=== PATIENT | female | born 2005 | race Caucasian/White ===

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

== ENCOUNTER → 2025-01-10 10:37 | Outpatient (BNVA) | payer OTHER, SELFPAY | PROVIDERS: PCP Clinical Nurse Specialist Adult Health; Visit Provider Clinical Nurse Specialist Adult Health | DX: Z30.09 Encounter for other general counseling and advice on contraception (principal) | CPT/HCPCS: 81025 ==

== ENCOUNTER → 2025-02-10 10:40 | Outpatient (BNVA) | payer OTHER, SELFPAY | PROVIDERS: PCP Clinical Nurse Specialist Adult Health; Visit Provider Clinical Nurse Specialist Adult Health | DX: E16.2 Hypoglycemia, unspecified (principal) | CPT/HCPCS: 80048; 82728; 83525; 83540; 84439; 84443; 85025 ==

== ENCOUNTER → 2025-03-10 09:38 | Outpatient (BNVA) | payer OTHER, SELFPAY | PROVIDERS: PCP Clinical Nurse Specialist Adult Health; Visit Provider Clinical Nurse Specialist Adult Health | DX: N93.9 Abnormal uterine and vaginal bleeding, unspecified (principal) | CPT/HCPCS: 81025 ==

== ENCOUNTER → 2025-04-14 14:06 | Outpatient (BNVA) | payer OTHER, SELFPAY | PROVIDERS: PCP Clinical Nurse Specialist Adult Health; Visit Provider Clinical Nurse Specialist Adult Health | DX: K29.70 Gastritis, unspecified, without bleeding (principal); R10.13 Epigastric pain | CPT/HCPCS: 87338 ==

== ENCOUNTER 2025-05-12 08:19 | Day surgery (SDC) | payer OTHER, SELFPAY ==
[2025-05-12 08:39] VITALS: BP 146/89; PULSE 98; RESP 16; TEMP 36.1; O2SAT 99
[2025-05-12 08:41] LABS: OR HCG Qualitative Urine Negative (Negative)
--- NOTE | 2025-05-12 09:31 | ANES.PREANE2 ---
Pre-Anesthetic Assessment Height/Weight: Height 1.65 m Weight 47.627 kg Temp Pulse Resp BP Pulse Ox O2 Del Method 97.0 F L 98 16 146/89 99 Room Air 05/12/25 08:39 05/12/25 08:39 05/12/25 08:39 05/12/25 08:39 05/12/25 08:39 05/12/25 08:39 Preop Diagnosis: epigastric pain Operation Date: 05/12/25 09:30 Proposed Procedures p EGD EGD with Biopsy 07051 R10.13 R12(Not Applicable) - Gamal Us MD Familial anesthetic complications: none Was Beta Nathalie taken within 24 hours: N/A Was Clonidine taken within 24 hours: N/A Last intake: Intake Last Liquid Date 05/11/25 Last Liquid Time 23:30 Last Solid Date 05/11/25 Last Solid Time 22:00 Social No alcohol and No tobacco Exam alert and oriented x 3 Airway Submandibular: within normal limits Cervical ROM: within normal limits Mallampati: Class I Dentition: full History/ROS No significant history except as noted GI Gastroesophageal Reflux Disease Anesthetic Plan ASA status: 2 Anesthesia: Anesthesia Evaluation and MAC Medications/Allergies Home Medications ?Medication ?Instructions ?Recorded ?Confirmed ?Last Taken ?Type folic acid 1 mg tablet 1 mg PO DAILY #30 tabs 01/10/25 05/09/25 05/11/25 Rx cetirizine 10 mg tablet (All Day 10 mg PO DAILY #30 tabs 04/08/25 05/09/25 05/11/25 Rx Allergy (cetirizine)) famotidine 20 mg tablet (Acid 20 mg PO BID #60 tabs 04/08/25 05/09/25 05/11/25 Rx Oil Deliverer (famotidine)) levonorgestrel 0.15 mg-ethinyl 1 tab PO DAILY #84 tabs 04/08/25 05/09/25 05/11/25 Rx estradiol 0.03 mg tablet (Bebo (28)) pantoprazole 40 mg tablet,delayed 40 mg PO BID 05/09/25 05/09/25 05/11/25 History release (Protonix) Allergies Allergy/AdvReac Type Severity Reaction Status Date / Time Penicillins Allergy Severe ALGY-Hives Verified 05/09/25 09:59 amoxicillin Allergy Intermediate rash, N&V Verified 05/09/25 09:59 Current Medications Generic Name Dose Route Start Last Admin Trade Name Freq PRN Reason Stop Dose Admin Sodium Chloride 1,000 mls @ 15 mls/hr 05/12/25 08:22 05/12/25 08:50 Sodium Chloride 0.9% IV 05/13/25 08:21 15 mls/hr .Q24H PRN Administration COLONOSCOPY FLUIDS PFSH Anesthesia Medical History (Updated 04/18/25 @ 09:27 by Gamal Us MD) Eustachian tube dysfunction History of miscarriage Vitamin D deficiency Encounter for other general counseling or advice on contraception Surgical History No pertinent past surgical history Family History Other Alcohol dependence Drug abuse Denies family history of Diabetes Clotting disorder Anesthesia complication Bleeding disorder Hypertension Social History Smoking and tobacco/nicotine status: former use of tobacco/nicotine (vape) Alcohol intake: never Substance/Drug Use: never Adopted: No Lives independently: Yes Household members: significant other Highest education level completed: High School Graduate Current occupational status: employed Current occupation: [employer] Female Reproductive History Date of last menstrual period: 05/09/25 Para: 0 Spontaneous abortions: Yes
--- NOTE | 2025-05-12 09:46 | W.PM.OPSUD ---
Surgery/Procedure H&P Update DATE OF PROCEDURE: May 12, 2025 DATE H&P PERFORMED: 04/18/25 H&P UPDATE INFORMATION: I have reviewed H&P completed within last 30 days, I have examined patient prior to procedure and No changes to prior documentation PREOP DIAGNOSIS: epigastric pain PLANNED PROCEDURE: Operation Date: 05/12/25 09:30 Proposed Procedures p EGD EGD with Biopsy 95405 R10.13 R12(Not Applicable) - Gamal Us MD
[2025-05-12 09:56] VITALS: BP 100/59; PULSE 98; RESP 18; TEMP 36.6; O2SAT 98
[2025-05-12 10:30] VITALS: BP 126/87; PULSE 83; RESP 16; O2SAT 99
--- NOTE | 2025-05-12 10:30 | ANE.PACU2 ---
Inpatient post-anesthesia follow up: Airway intact: Yes Vital signs: Temperature 98 F Pulse Rate 83 Respiratory Rate 16 Blood Pressure 126/87 Pulse Oximetry 99 Oxygen Delivery Me thod Room Air Oxygen Flow Rate Fraction of Inspir ed Oxygen Hydration adequate: Yes Nausea and vomiting: No Pain level: 1 Mental status: Baseline
== END 2025-05-12 10:30 | disposition home or self-care (01) ==
PROVIDERS: Student in an Organized Health Care Education/Training Program; PCP Clinical Nurse Specialist Adult Health; Visit Provider Student in an Organized Health Care Education/Training Program
PROC: 0DJ08ZZ Inspection of Upper Intestinal Tract, Via Natural or Artificial Opening Endoscopic (ICD-10-PCS; principal; 2025-05-12 09:30)
DX: R12 Heartburn (principal); K29.50 Unspecified chronic gastritis without bleeding; K21.9 Gastro-esophageal reflux disease without esophagitis; Z87.891 Personal history of nicotine dependence
CPT/HCPCS: 43239; 81025; 88305; 88342; J2704; J7030

== ENCOUNTER 2025-06-01 10:17 | Outpatient (CLI) | payer OTHER, SELFPAY ==
--- NOTE | 2025-06-01 10:15 | US_ITS ---
WS: [id number] RIGHT UPPER QUADRANT ULTRASOUND HISTORY: abd pain COMPARISON: None available. Liver: 14.2 cm in length. Normal size liver and echogenicity. No bile duct dilatation or mass. Portal Vein: Normal hepatopetal flow with monophasic waveform. Gallbladder: Normally distended gallbladder. A tiny gallbladder polyp or small amount of adherent sludge present. No stones. CBD: 0.2 cm Pancreas: Normal size and echogenicity. Right kidney: 10.0 cm in length. Normal size and echogenicity. No hydronephrosis or mass. Aorta and IVC: Unremarkable abdominal aorta and IVC. No ascites. US/US gall bladder [id number] IMPRESSION: 1. No cholelithiasis. 2. Very tiny gallbladder polyp versus adherent sludge in the gallbladder. Othe rwise negative. 3. Normal liver.
== END 2025-06-01 10:18 | disposition home or self-care (01) ==
PROVIDERS: PCP Clinical Nurse Specialist Adult Health; Visit Provider Student in an Organized Health Care Education/Training Program
DX: R10.9 Unspecified abdominal pain (principal); K82.8 Other specified diseases of gallbladder
CPT/HCPCS: 76705

== ENCOUNTER 2025-06-20 10:31 | Outpatient (CLI) | payer OTHER, SELFPAY | END 2025-06-20 10:32 | disposition home or self-care (01) | LOC: RAD 06-24 08:53 | PROVIDERS: PCP Clinical Nurse Specialist Adult Health; Visit Provider Clinical Nurse Specialist Adult Health | DX: J06.9 Acute upper respiratory infection, unspecified (principal) | CPT/HCPCS: 87880 ==

== ENCOUNTER 2025-07-04 10:04 | Outpatient (CLI) | payer OTHER, SELFPAY ==
--- NOTE | 2025-07-04 10:00 | NM_ITS ---
WS: [id number] NUCLEAR MEDICINE HIDA SCAN CLINICAL INFORMATION: R10.11 - Right upper quadrant pain TECHNIQUE: Following intravenous administration of 7.3 mCi of technetium 99m mebrofenin, images of the abdomen were obtained over the course of 60 minutes. Next, gallbladder ejection fraction was determined by obtaining preprandial and one-hour postprandial images of the gallbladder following oral ingestion of Ensure. FINDINGS: Normal hepatic uptake at 5 minutes. Normal hepatic excretion. Gallbladder is visualized by 10 minutes. No evidence of acute cholecystitis. Normal common bile duct and small bowel activity. Gallbladder ejection fraction 46% within normal limits at the lower end of the range. No other acute findings. NM/NM hepatobiliary w phar* [id number] IMPRESSION: 1. No evidence of acute cholecystitis. 2. Normal common bile duct and small bowel activity. 3. Gallbladder ejection fraction 46% within normal limits at the lower end of the range.
== END 2025-07-04 10:05 | disposition home or self-care (01) ==
PROVIDERS: PCP Clinical Nurse Specialist Adult Health; Visit Provider Clinical Nurse Specialist Adult Health
DX: R10.11 Right upper quadrant pain (principal)
CPT/HCPCS: 78227; A9537

== ENCOUNTER 2025-08-17 05:43 | Day surgery (SDC) | payer OTHER, SELFPAY ==
[2025-08-17] VITALS (9 sets, daily range): BP systolic 92–132; BP diastolic 46–80; PULSE 87–106; RESP 17–24; TEMP 36.1–36.7; O2SAT 98–100; BMI 20.1
[2025-08-17 05:56] LABS: OR HCG Qualitative Urine Negative (Negative)
--- NOTE | 2025-08-17 06:14 | ANES.PREANE2 ---
Pre-Anesthetic Assessment Height/Weight: Height 5 ft 2 in Preop Diagnosis: Gallbladder pain Operation Date: 08/17/25 07:00 Proposed Procedures p Laparoscopic Cholecystectomy Lap [place] 32946 R10.11(Not Applicable) - Gamal Us MD Was Beta Nathalie taken within 24 hours: N/A Was Clonidine taken within 24 hours: N/A Social No alcohol and No tobacco Exam alert, oriented x 3, clear to auscultation bilaterally and regular rate & rhythm Airway Submandibular: within normal limits Cervical ROM: within normal limits Mallampati: Class I Dentition: full Anesthetic Plan ASA status: 2 Anesthesia: General Other: No prior issues with anesthesia NPO since yesterday afternoon Denies any cardiac or pulmonary issues Patient takes Protonix for chronic gastritis METs greater than 4 hCG negative Plan for GETA Medications/Allergies Home Medications ?Medication ?Instructions ?Recorded ?Confirmed ?Last Taken ?Type folic acid 1 mg tablet 1 mg PO DAILY #30 tabs 01/10/25 08/16/25 08/16/25 Rx levonorgestrel 0.15 mg-ethinyl 1 tab PO DAILY #84 tabs 07/22/25 08/16/25 08/16/25 Rx estradiol 0.03 mg tablet ([place]urvelo (28)) pantoprazole 40 mg tablet,delayed 40 mg PO BID #60 tabs 07/22/25 08/16/25 08/16/25 Rx release (Protonix) cetirizine 10 mg tablet (All Day 10 mg PO DAILY #30 tabs 08/16/25 Unknown Rx Allergy (cetirizine)) Allergies Allergy/AdvReac Type Severity Reaction Status Date / Time Penicillins Allergy Severe ALGY-Hives Verified 08/04/25 10:05 amoxicillin Allergy Intermediate rash, N&V Verified 08/04/25 10:05 [facility] Anesthesia Medical History Eustachian tube dysfunction History of miscarriage Vitamin D deficiency Encounter for other general counseling or advice on contraception Surgical History No pertinent past surgical history Family History Other Alcohol dependence Drug abuse Gallbladder calculus Denies family history of Diabetes Clotting disorder Anesthesia complication Bleeding disorder Hypertension Social History Smoking and tobacco/nicotine status: never used tobacco/nicotine Alcohol intake: never Substance/Drug Use: never Adopted: No Lives independently: Yes Household members: significant other Highest education level completed: High School Graduate Current occupational status: employed Current occupation: [employer] Female Reproductive History Date of last menstrual period: 07/29/25 Para: 0 Spontaneous abortions: Yes
--- NOTE | 2025-08-17 07:04 | W.PM.OPSUD ---
Surgery/Procedure H&P Update DATE OF PROCEDURE: August 17, 2025 DATE H&P PERFORMED: 08/04/25 H&P UPDATE INFORMATION: I have reviewed H&P completed within last 30 days, I have examined patient prior to procedure, No changes to prior documentation and Risks and benefits of the procedure reviewed CHANGES TO PREVIOUS DOCUMENTATION: Proceed with laparoscopic cholecystectomy possible open PREOP DIAGNOSIS: Gallbladder pain PLANNED PROCEDURE: Operation Date: 08/17/25 07:00 Proposed Procedures p Laparoscopic Cholecystectomy Lap [place] 15236 R10.11(Not Applicable) - Gamal Us MD
[2025-08-17] MEDS: lidocaine-epi 1% 20 mL INJ 10 ML INJECTION (07:53)
--- NOTE | 2025-08-17 07:54 | P.OP_ITS ---
Operative Report Date of procedure: August 17, 2025 Pre-op diagnosis: Gallbladder sludge Post-op diagnosis: same Post-op findings: Unremarkable gallbladder. Procedure done: Laparoscopic cholecystectomy Implants: N/A Specimens removed/disposition: Gallbladder sent to pathology Pathology: Gallbladder sent to pathology Surgeon: Gamal Us MD Respiratory Therapy Manager: N/A Anesthesia: General Estimated blood loss (mL): 10 Complications: N/A Findings: Unremarkable gallbladder. Condition: stable Disposition: same day Brief History: 19-year-old female complaining of right upper quadrant pain whose ultrasound showed sludge. Discussed risk and benefits and patient agreed to proceed with laparoscopic cholecystectomy possible open. Procedure: I discussed the risks and benefits of laparoscopic cholecystectomy, possible open, and obtained consent prior to proceeding to the operating room. SCDs were utilized. Prophylactic antibiotics were administered. General anesthesia was induced. The patient was placed supine, and was prepped and draped in the usual sterile fashion. Insufflation to 15mmHg was achieved using a Veress needle at Walter's point. A 5mm optiview trocar was placed at the umbilicus under direct visualization. The left upper quadrant was inspected, and no injuries were noted. Two 5mm ports were placed in the right upper quadrant, and a 12mm working port was placed in the epigastrium. The gallbladder was then retracted cephalad through the lateral RUQ port, and the infundibulum grabbed through the medial RUQ port and retracted laterally. The gallbladder was not inflammed consistent with the diagnosis of gallbladder sludge. I proceeded to score the peritoneum over the medial aspect of the gallbladder using a laparoscopic hook with electrocautery. Then the infundibulum was retracted medially in order to score the peritoneum over the lateral aspect of the galbladder. Using a combination of energy and blunt dissection with the [place] and a Kittner dissector, the cystic artery and cystic duct were dissected. I then proceeded to dissect the cystic plate in order to to achieve the critical view of safety (CVS - hepatocystic triangle was cleared of fat and fibrous tissue, the lower one-third of the gallbladder was from the liver to expose the cystic plate, two and only two structures were seen entering the gallbladder, the cystic duct and the cystic artery). The cystic artery and the cystic duct were clipped three times (leaving two clips on the proximal end of both structures). I then proceeded to dissect the gallbladder off the liver using hook electrocautery. The specimen was placed in an endocatch bag and retrieved from the abdomen through the port on the epigastrium. I then irrigated the gallbladder fossa with 1L of NS to confirm adequate hemostasis and the absence of any bile leaks. The gallbladder fossa was then cauterized again. Prior to ending the laparoscopic portion, I examined the rest of the abdomen and did not find any abnormalities or injuries. The abdomen was then desufflated, and the 12mm port at the umbilicus was closed using 0 vicryl on a UR needle after irrigating copiously. Skin was closed using 4-0 monocryl and surgical glue. The patient woke up from anesthesia and transferred to PACU without any complications.
--- NOTE | 2025-08-17 09:40 | ANE.PACU2 ---
Inpatient post-anesthesia follow up: Airway intact: Yes Vital signs: Temperature 97.0 F Pulse Rate 102 Respiratory Rate 17 Blood Pressure 132/79 Pulse Oximetry 100 Oxygen Delivery Me thod Room Air Oxygen Flow Rate Fraction of Inspir ed Oxygen Hydration adequate: Yes Nausea and vomiting: No Pain level: 1 Mental status: Baseline
== END 2025-08-17 09:40 | disposition home or self-care (01) ==
PROVIDERS: PCP Clinical Nurse Specialist Adult Health; Visit Provider Student in an Organized Health Care Education/Training Program
PROC: 0FT44ZZ Resection of Gallbladder, Percutaneous Endoscopic Approach (ICD-10-PCS; CPT 47562; principal; 2025-08-17 07:00)
DX: R10.11 Right upper quadrant pain (principal); K81.1 Chronic cholecystitis; K21.9 Gastro-esophageal reflux disease without esophagitis
CPT/HCPCS: 47562; 81025; 88304; A4216; J0131; J1100; J1885; J2250; J2371; J2405; J2704; J3010; J3373; J3490; J7030; J7050; J9999